=== PATIENT | male | born 1975 | race Hispanic/Latino ===

== ENCOUNTER 2018-06-23 16:18 | Outpatient (CLI) | payer BC ==
--- NOTE | 2018-06-23 16:36 | RAD ---
4 views right knee. HISTORY: Right knee pain for 3 days AP, lateral and both oblique views right knee obtained. The right knee is unremarkable. No evidence of right knee fractures, subluxations or bony lesion seen . IMPRESSION: unremarkable 4 views right knee.
== END 2018-06-23 16:19 | disposition home or self-care (01) ==
LOC: SCSRAD 16:18
PROVIDERS: ATTEND Family Medicine
DX: Z00.00 Encounter for general adult medical examination without abnormal findings (principal); S83.90XA Sprain of unspecified site of unspecified knee, initial encounter; M25.561 Pain in right knee; Z68.31 Body mass index [BMI] 31.0-31.9, adult

== ENCOUNTER 2023-05-19 16:47 | Outpatient (CLI) | payer OTHER | END 2023-05-19 16:48 | disposition home or self-care (01) | LOC: SCSRAD 16:47 | PROVIDERS: ATTEND Family Medicine | DX: S93.409A Sprain of unspecified ligament of unspecified ankle, initial encounter (principal) ==